=== PATIENT | male | born 1945 | race African-American/Black ===

== ENCOUNTER 2017-07-29 04:23 | Inpatient (IN) | payer MEDICARE ==
[2017-07-29] VITALS (7 sets, daily range): BP systolic 121–157; BP diastolic 56–78
[~2017-07-29] VITALS: Ht 175.3 cm; Wt 61.7 kg
[~2017-07-29 04:23] MED LIST: AMLO5TAB4 PO; ASPI-1158 PO; ATOR10TA PO; CALC0.253; CLOP75TA16; CLOP75TA33; LISI-604 PO; LOSA50TA20; METO25TA6 PO
[2017-07-29] MEDS ORDERED: ASPIRIN 81MG TABLET PO ONE (05:00)
[2017-07-29] MEDS ORDERED: SODIUM CHLORIDE 0.9% 1,000 ML IV ONE (05:00)
[2017-07-29 05:54] LABS: BASOPHILS % 0.4 % (0.0-2.0); EOSINOPHILS % 0.3 % (0.0-5.0); HEMOGLOBIN. 13.4 g/dL (14.0-18.0); LYMPHOCYTES % 9.5 % (20.0-50.0); MEAN CORPUSCULAR HEMOGLOBIN 29.7 pg (28.0-32.0); MEAN CORPUSCULAR VOLUME 88.9 fL (80.0-94.0); MEAN PLATELET VOLUME 9.6 fl (7.4-10.4); MONOCYTES % 4.3 % (2.0-8.0); NEUTROPHILS % 85.5 % (40.0-76.0); PLATELET 212 x1000/uL (130-400); RED CELL DISTRIBUTION WIDTH 12.9 % (11.6-14.6)
[2017-07-29 06:03] LABS: D-DIMER 0.62 mg/L FEU (<0.50); INR 1.1; PROTHROMBIN TIME 11.2 sec (9.4-11.6)
[2017-07-29 06:23] LABS: CARBON DIOXIDE 25 mEq/L (21-32); CHLORIDE 106 mEq/L (98-107); ETHANOL BLOOD < 10 mg/dL; TROPONIN I < 0.02 ng/mL (0.00-0.04)
[2017-07-29] MEDS ORDERED: ONDANSETRON HCL 4MG/2ML VIAL IV PRN (07:00)
[2017-07-29] MEDS ORDERED: MAGNESIUM/ALUMINUM HYDROXIDE/SIMETHICONE 30ML UDC PO PRN (07:00)
[2017-07-29] MEDS ORDERED: POTASSIUM CHLORIDE 20MEQ TABLET SR PO SCH ×2 (07:00→14:30)
[2017-07-29] MEDS ORDERED: TRAMADOL 50MG TABLET PO PRN (07:00)
[2017-07-29] MEDS ORDERED: DOCUSATE SODIUM 100MG CAPSULE PO PRN (07:00)
[2017-07-29] MEDS ORDERED: NA PHOS,M-B/NA PHOS,DI-BA ENEMA 118ML PR PRN (07:00)
[2017-07-29] MEDS ORDERED: LORAZEPAM 2MG/ML CPJ IV PRN (07:00)
[2017-07-29] MEDS ORDERED: NITROGLYCERIN 0.4MG TABLET SL SL PRN (07:00)
[2017-07-29] MEDS ORDERED: IPRATROPIUM/ALBUTEROL 0.5-3(2.5)MG/3ML NEB INH PRN (07:00)
[2017-07-29] MEDS ORDERED: ACETAMINOPHEN 325MG TABLET PO PRN (07:00)
[2017-07-29] MEDS ORDERED: GUAIFENESIN 200MG/10ML SUGAR FREE UDC PO PRN (07:00)
[2017-07-29] MEDS ORDERED: CLONIDINE 0.1MG TABLET PO PRN (07:00)
[2017-07-29] MEDS ORDERED: DIPHENHYDRAMINE 50MG/ML VIAL IV PRN (07:00)
[2017-07-29] MEDS ORDERED: MORPHINE SULFATE 4 MG/ML CPJ (NOT FOR IM USE) IV PRN (08:15)
[2017-07-29] MEDS: FAMOTIDINE 20MG/2ML VIAL IV SCH ×2 (08:38→21:13)
[2017-07-29] MEDS: ASPIRIN 325MG EC TABLET PO SCH (08:38)
[2017-07-29] MEDS: METOPROLOL TARTRATE 25MG TABLET PO SCH ×2 (08:39→21:13)
[2017-07-29] MEDS: ENOXAPARIN 40MG/0.4ML SYR SUBCUT SCH (08:39)
[2017-07-29] MEDS: LISINOPRIL 20MG TABLET PO SCH ×2 (08:39→21:13)
[2017-07-29] MEDS ORDERED: REGADENOSON 0.4 MG/5 ML IV ONE (14:30)
[2017-07-29 17:49] LABS: CREATINE KINASE MB FRACTION 7.1 ng/mL (0.5-3.6)
[2017-07-29 17:56] LABS: TROPONIN I 0.77 ng/mL (0.00-0.04)
[2017-07-29 19:11] LABS: *AMPHETAMINES SCREEN URINE NEGATIVE (NEGATIVE); *BARBITURATES SCREEN URINE NEGATIVE (NEGATIVE); *BENZODIAZEPINES SCREEN URINE NEGATIVE (NEGATIVE); *COCAINE SCREEN URINE NEGATIVE (NEGATIVE); CANNABINOID URINE SCREEN NEGATIVE (NEGATIVE); METHADONE URINE SCREEN NEGATIVE (NEGATIVE); OPIATES URINE SCREEN NEGATIVE (NEGATIVE); PHENCYCLIDINE URINE SCREEN NEGATIVE (NEGATIVE)
[2017-07-29] MEDS ORDERED: ZOLPIDEM TARTRATE 5MG TABLET PO PRN (21:00)
[2017-07-29] MEDS: ATORVASTATIN CALCIUM 10MG TABLET PO SCH (21:13)
[2017-07-30] VITALS (22 sets, daily range): BP systolic 100–169; BP diastolic 47–92
[2017-07-30 08:02] LABS: TROPONIN I 0.71 ng/mL (0.00-0.04)
[2017-07-30] MEDS: ENOXAPARIN 40MG/0.4ML SYR SUBCUT SCH (09:00)
[2017-07-30 09:31] LABS: CHLORIDE 108 mEq/L (98-107)
[2017-07-30 09:36] LABS: CARBON DIOXIDE 26 mEq/L (21-32)
[2017-07-30] MEDS ORDERED: CLONIDINE 0.2MG TABLET PO PRN (09:45)
[2017-07-30] MEDS ORDERED: CLONIDINE 0.1MG TABLET PO PRN (10:00)
[2017-07-30] MEDS: FAMOTIDINE 20MG/2ML VIAL IV SCH ×2 (10:34→21:51)
[2017-07-30] MEDS: LISINOPRIL 20MG TABLET PO SCH ×2 (10:35→21:50)
[2017-07-30] MEDS: METOPROLOL TARTRATE 25MG TABLET PO SCH ×2 (10:35→21:00)
[2017-07-30] MEDS: ASPIRIN 325MG EC TABLET PO SCH (10:35)
[2017-07-30] MEDS: NITROGLYCERIN OINT 1GM/INCH UDPKT TD SCH ×2 (12:44→17:06)
[2017-07-30] MEDS: AMLODIPINE 2.5MG TABLET PO SCH ×2 (12:44→21:50)
[2017-07-30] MEDS ORDERED: MIDAZOLAM HCL 2 MG/2 ML VIAL ONE (13:38)
[2017-07-30] MEDS ORDERED: HEPARIN SODIUM 1,000 UNIT/1ML VIAL IV ONE (13:38)
[2017-07-30] MEDS ORDERED: IODIXANOL 320MG/ML 100 ML BOTTLE IV ONE (13:39)
[2017-07-30] MEDS ORDERED: LIDOCAINE HCL 1% 20ML VIAL (Pyxis) INJ ONE (13:39)
[2017-07-30] MEDS ORDERED: FENTANYL CITRATE/PF 50MCG/ML 2ML VIAL ONE (13:39)
[2017-07-30] MEDS ORDERED: ATROPINE SULFATE 0.1MG/ML 10ML DISP.SYRIN ONE (13:54)
[2017-07-30] MEDS ORDERED: NITROGLYCERIN 50MCG/ML 10ML VIAL (CATH LAB) IV ONE (14:00)
[2017-07-30] MEDS ORDERED: NICARDIPINE 100MCG/ML 10ML VIAL (CATH LAB) IV ONE (14:00)
[2017-07-30] MEDS ORDERED: ATROPINE SULFATE 1MG/10ML SYR IV PRN (14:15)
[2017-07-30] MEDS ORDERED: SODIUM CHLORIDE 0.45% 1,000 ML IV ONE (14:15)
[2017-07-30] MEDS ORDERED: ACETAMINOPHEN 325MG TABLET PO PRN (14:15)
[2017-07-30] MEDS: ATORVASTATIN CALCIUM 10MG TABLET PO SCH (21:50)
[2017-07-31] VITALS (11 sets, daily range): BP systolic 102–147; BP diastolic 51–83
[2017-07-31] MEDS: NITROGLYCERIN OINT 1GM/INCH UDPKT TD SCH ×2 (00:25→06:11)
[2017-07-31 07:13] LABS: BASOPHILS % 0.5 % (0.0-2.0); EOSINOPHILS % 1.1 % (0.0-5.0); HEMATOCRIT. 36.7 % (42.0-52.0); HEMOGLOBIN. 12.2 g/dL (14.0-18.0); LYMPHOCYTES % 16.6 % (20.0-50.0); MEAN CORPUSCULAR HEMOGLOBIN 29.6 pg (28.0-32.0); MEAN CORPUSCULAR VOLUME 89.2 fL (80.0-94.0); MEAN PLATELET VOLUME 9.5 fl (7.4-10.4); MONOCYTES % 9.2 % (2.0-8.0); NEUTROPHILS % 72.6 % (40.0-76.0); PLATELET 193 x1000/uL (130-400); RED BLOOD CELL COUNT 4.11 mill/uL (4.7-6.1); RED CELL DISTRIBUTION WIDTH 12.4 % (11.6-14.6)
[2017-07-31 07:17] LABS: CHLORIDE 105 mEq/L (98-107)
[2017-07-31 07:37] LABS: CARBON DIOXIDE 25 mEq/L (21-32); TROPONIN I 0.31 ng/mL (0.00-0.04)
[2017-07-31] MEDS: METOPROLOL TARTRATE 25MG TABLET PO SCH (09:00)
[2017-07-31] MEDS: FAMOTIDINE 20MG/2ML VIAL IV SCH (09:01)
[2017-07-31] MEDS: ASPIRIN 325MG EC TABLET PO SCH (09:01)
[2017-07-31] MEDS: LISINOPRIL 20MG TABLET PO SCH (09:01)
[2017-07-31] MEDS: AMLODIPINE 2.5MG TABLET PO SCH (09:02)
[2017-07-31] MEDS ORDERED: CLOPIDOGREL 75MG TABLET PO SCH (09:30)
== END 2017-07-31 12:53 | disposition home or self-care (01) | DRG 282 ==
LOC: ER 04:23 → 5EST 05:14 → SUPCPDRO 06:32 → ENRESERV 12:01 → 3WST 07-30 14:25
PROVIDERS: ADMIT Internal Medicine; ATTEND Internal Medicine
PROC: 4A023N7 Measurement of Cardiac Sampling and Pressure, Left Heart, Percutaneous Approach (ICD-10-PCS; principal; 2017-07-30)
PROC: B2111ZZ Fluoroscopy of Multiple Coronary Arteries using Low Osmolar Contrast (ICD-10-PCS; 2017-07-30)
PROC: B2151ZZ Fluoroscopy of Left Heart using Low Osmolar Contrast (ICD-10-PCS; 2017-07-30)
DX: I21.4 Non-ST elevation (NSTEMI) myocardial infarction (principal); I27.2 Other secondary pulmonary hypertension; I11.9 Hypertensive heart disease without heart failure; E78.5 Hyperlipidemia, unspecified; E87.6 Hypokalemia; E78.00 Pure hypercholesterolemia, unspecified; I25.10 Atherosclerotic heart disease of native coronary artery without angina pectoris; J44.9 Chronic obstructive pulmonary disease, unspecified; Z79.82 Long term (current) use of aspirin; Z95.5 Presence of coronary angioplasty implant and graft
CPT/HCPCS: 36415; 71010; 80048; 80053; 80061; 80305; 82550; 82553; 83036; 83690; 83735; 83880; 84443; 84484; 85025; 85379; 85610; 93005; 93306; 93458; 93970; 96360; 96361; 99285; C1769; C1887; C1893; G0482; J0461; J1644; J1650; J2250; J3010; J3490; J7030; Q9967

== ENCOUNTER 2017-12-01 01:47 | Emergency (ER) | payer MEDICARE ==
[~2017-12-01] VITALS: Ht 182.9 cm; Wt 69.0 kg
[2017-12-01 03:27] LABS: BASOPHILS % 0.3 % (0.0-2.0); EOSINOPHILS % 0.4 % (0.0-5.0); HEMATOCRIT. 42.4 % (42.0-52.0); HEMOGLOBIN. 13.7 g/dL (14.0-18.0); LYMPHOCYTES % 11.7 % (20.0-50.0); MEAN CORPUSCULAR HEMOGLOBIN 29.1 pg (28.0-32.0); MEAN CORPUSCULAR VOLUME 90.5 fL (80.0-94.0); MEAN PLATELET VOLUME 9.1 fl (7.4-10.4); MONOCYTES % 7.6 % (2.0-8.0); PLATELET 222 x1000/uL (130-400); RED BLOOD CELL COUNT 4.69 mill/uL (4.7-6.1)
[2017-12-01 04:01] LABS: CARBON DIOXIDE 29 mEq/L (21-32); CHLORIDE 106 mEq/L (98-107); TROPONIN I < 0.02 ng/mL (0.00-0.04)
[2017-12-01 05:50] VITALS: BP 137/67
== END 2017-12-01 06:00 | disposition home or self-care (01) ==
LOC: ER 01:55
DX: R00.0 Tachycardia, unspecified (principal); I11.0 Hypertensive heart disease with heart failure; I50.9 Heart failure, unspecified; Z79.82 Long term (current) use of aspirin
CPT/HCPCS: 36415; 71045; 80053; 83880; 84484; 85025; 85379; 93005; 99285

== ENCOUNTER 2017-12-06 13:04 | Emergency (ER) | payer MEDICARE ==
[~2017-12-06] VITALS: Ht 170.2 cm; Wt 62.0 kg
[2017-12-06 13:15] VITALS: BP 178/83
== END 2017-12-06 13:41 | disposition home or self-care (01) ==
LOC: ER 13:28
DX: H93.12 Tinnitus, left ear (principal); I11.0 Hypertensive heart disease with heart failure; I50.9 Heart failure, unspecified; Z79.82 Long term (current) use of aspirin
CPT/HCPCS: 99281

== ENCOUNTER 2018-02-06 00:33 | Emergency (ER) | payer MEDICARE ==
[~2018-02-06] VITALS: Ht 177.8 cm; Wt 73.0 kg
[2018-02-06 02:36] LABS: BASOPHILS % 0.5 % (0.0-2.0); HEMATOCRIT. 40.7 % (42.0-52.0); HEMOGLOBIN. 13.3 g/dL (14.0-18.0); LYMPHOCYTES % 7.9 % (20.0-50.0); MEAN CORPUSCULAR HEMOGLOBIN 29.3 pg (28.0-32.0); MEAN CORPUSCULAR VOLUME 89.5 fL (80.0-94.0); MEAN PLATELET VOLUME 9.1 fl (7.4-10.4); MONOCYTES % 8.3 % (2.0-8.0); NEUTROPHILS % 82.3 % (40.0-76.0); PLATELET 214 x1000/uL (130-400); RED BLOOD CELL COUNT 4.55 mill/uL (4.7-6.1); RED CELL DISTRIBUTION WIDTH 12.9 % (11.6-14.6)
[2018-02-06 02:46] LABS: CHLORIDE 107 mEq/L (98-107)
[2018-02-06 04:11] VITALS: BP 138/77
== END 2018-02-06 05:42 | disposition home or self-care (01) ==
LOC: ER 00:42
DX: R00.2 Palpitations (principal); I11.0 Hypertensive heart disease with heart failure; I50.9 Heart failure, unspecified; Z79.82 Long term (current) use of aspirin; Z79.01 Long term (current) use of anticoagulants
CPT/HCPCS: 36415; 71045; 80053; 83880; 84484; 85025; 93005; 99285

== ENCOUNTER 2018-12-02 08:39 | Inpatient (IN) | payer MEDICARE ==
[~2018-12-02] VITALS: Ht 172.7 cm; Wt 64.9 kg
[2018-12-02 09:31] LABS: BASOPHILS % 0.4 % (0.0-2.0); EOSINOPHILS % 0.8 % (0.0-5.0); HEMATOCRIT. 43.5 % (42.0-52.0); HEMOGLOBIN. 14.2 g/dL (14.0-18.0); LYMPHOCYTES % 18.9 % (20.0-50.0); MEAN CORPUSCULAR VOLUME 91.8 fL (80.0-94.0); MEAN PLATELET VOLUME 8.8 fl (7.4-10.4); MONOCYTES % 8.8 % (2.0-8.0); NEUTROPHILS % 71.1 % (40.0-76.0); PLATELET 264 x1000/uL (130-400); RED BLOOD CELL COUNT 4.74 mill/uL (4.7-6.1); RED CELL DISTRIBUTION WIDTH 12.8 % (11.6-14.6)
[2018-12-02 09:34] LABS: CHLORIDE 110 mEq/L (98-107)
[2018-12-02 09:38] LABS: PROTHROMBIN TIME 10.4 sec (9.1-11.1)
[2018-12-02] MEDS ORDERED: POTASSIUM CHLORIDE 20MEQ TABLET SR PO ONE (10:30)
[2018-12-02] MEDS ORDERED: ASPIRIN 81MG TABLET PO ONE (10:30)
[2018-12-02] MEDS ORDERED: FAMO20TA8 MT (11:40)
[2018-12-02] MEDS ORDERED: HYDR100T26 MT (11:42)
[2018-12-02] MEDS ORDERED: LOSA100T14 MT (11:45)
[2018-12-02] MEDS ORDERED: ATOR40TA70 MT (11:47)
[2018-12-02] MEDS ORDERED: CLONIDINE 0.1MG TABLET PO PRN (12:45)
[2018-12-02] MEDS ORDERED: GUAIFENESIN 200MG/10ML SUGAR FREE UDC PO PRN (12:45)
[2018-12-02] MEDS ORDERED: IPRATROPIUM/ALBUTEROL 0.5-3(2.5)MG/3ML NEB INH PRN (12:45)
[2018-12-02] MEDS ORDERED: MAGNESIUM/ALUMINUM HYDROXIDE/SIMETHICONE 30ML UDC PO PRN (12:45)
[2018-12-02] MEDS ORDERED: NITROGLYCERIN 0.4MG TABLET SL SL PRN (12:45)
[2018-12-02] MEDS ORDERED: ACETAMINOPHEN 325MG TABLET PO PRN (12:45)
[2018-12-02] MEDS ORDERED: ONDANSETRON HCL 4MG/2ML INJ IV PRN (12:45)
[2018-12-02] MEDS ORDERED: DIPHENHYDRAMINE 50MG/ML VIAL IV PRN (12:45)
[2018-12-02] MEDS ORDERED: DOCUSATE SODIUM 100MG CAPSULE PO PRN (12:45)
[2018-12-02 15:19] LABS: *AMPHETAMINES SCREEN URINE NEGATIVE (NEGATIVE); *BARBITURATES SCREEN URINE NEGATIVE (NEGATIVE); *BENZODIAZEPINES SCREEN URINE NEGATIVE (NEGATIVE); *COCAINE SCREEN URINE NEGATIVE (NEGATIVE)
[2018-12-02 15:20] LABS: METHADONE URINE SCREEN NEGATIVE (NEGATIVE); OPIATES URINE SCREEN NEGATIVE (NEGATIVE)
[2018-12-02 15:21] LABS: CANNABINOID URINE SCREEN NEGATIVE (NEGATIVE); PHENCYCLIDINE URINE SCREEN NEGATIVE (NEGATIVE)
[2018-12-02 20:00] VITALS: BP 143/73
[2018-12-02] MEDS ORDERED: TRAMADOL 50MG TABLET PO PRN (20:40)
[2018-12-02] MEDS ORDERED: ZOLPIDEM TARTRATE 5MG TABLET PO PRN (20:44)
[2018-12-02] MEDS ORDERED: LORAZEPAM 0.5MG TABLET PO PRN (20:44)
[2018-12-02] MEDS ORDERED: ATORVASTATIN CALCIUM 10MG TABLET PO SCH (21:00)
[2018-12-02] MEDS ORDERED: NA PHOS,M-B/NA PHOS,DI-BA ENEMA 118ML PR PRN (21:00)
[2018-12-02] MEDS ORDERED: LISINOPRIL 20MG TABLET PO SCH (21:00)
[2018-12-02] MEDS ORDERED: ENOXAPARIN 40MG/0.4ML SYR SUBCUT SCH (21:00)
[2018-12-02 21:02] LABS: CREATINE KINASE MB FRACTION 6.1 ng/mL (0.5-3.6)
[2018-12-02 22:00] VITALS: BP 143/73
[2018-12-02] MEDS: LOSARTAN POTASSIUM 25 MG TABLET PO SCH (22:01)
[2018-12-02] MEDS: ASPIRIN 81MG EC TABLET PO SCH (22:01)
[2018-12-02] MEDS: METOPROLOL TARTRATE 25MG TABLET PO SCH (22:02)
[2018-12-02] MEDS: ASCORBIC ACID 500 MG TABLET PO SCH (22:02)
[2018-12-02] MEDS: FAMOTIDINE 20MG TABLET PO SCH (22:03)
[2018-12-03] VITALS: BP 132/80
[2018-12-03 04:00] VITALS: BP 139/70
[2018-12-03 08:00] VITALS: BP 110/71
[2018-12-03] MEDS: LOSARTAN POTASSIUM 25 MG TABLET PO SCH (08:49)
[2018-12-03] MEDS: METOPROLOL TARTRATE 25MG TABLET PO SCH (08:50)
[2018-12-03] MEDS: ASPIRIN 81MG EC TABLET PO SCH ×2 (08:50→17:00)
[2018-12-03] MEDS: ASCORBIC ACID 500 MG TABLET PO SCH (08:50)
[2018-12-03] MEDS: FAMOTIDINE 20MG TABLET PO SCH (08:51)
[2018-12-03] MEDS ORDERED: ZINC SULFATE 220 MG ( 50 ) CAPSULE PO SCH (09:00)
[2018-12-03] MEDS ORDERED: ASPIRIN 325MG EC TABLET PO SCH (09:00)
[2018-12-03] MEDS ORDERED: CLOPIDOGREL 75MG TABLET PO SCH (09:00)
[2018-12-03 12:00] VITALS: BP 138/78
[2018-12-03 15:44] VITALS: BP 138/78
[2018-12-03 16:00] VITALS: BP 128/75
== END 2018-12-03 18:05 | disposition home health service (06) | DRG 313 ==
LOC: ER 08:39 → EDBEDREQ 11:05 → EDBEDREQTM 11:05 → EDBEDREQ 11:59 → 5WST 12:00 → EDBEDREQTM 12:02 → ENRESERV 18:02
PROVIDERS: ADMIT Internal Medicine; ATTEND Internal Medicine
DX: R07.89 Other chest pain (principal); E78.00 Pure hypercholesterolemia, unspecified; E78.5 Hyperlipidemia, unspecified; E87.6 Hypokalemia; R00.0 Tachycardia, unspecified; R00.2 Palpitations; I11.9 Hypertensive heart disease without heart failure; I25.10 Atherosclerotic heart disease of native coronary artery without angina pectoris; J44.9 Chronic obstructive pulmonary disease, unspecified; Z79.899 Other long term (current) drug therapy; Z95.5 Presence of coronary angioplasty implant and graft; Z79.82 Long term (current) use of aspirin
CPT/HCPCS: 36415; 71045; 80061; 80305; 82550; 82553; 83036; 83735; 83880; 84443; 84484; 85379; 93005; 93306; 93970; 96374; 97162; 97165; 99285; J1650

== ENCOUNTER 2019-04-10 19:34 | Emergency (ER) | payer MEDICARE ==
[~2019-04-10] VITALS: Ht 180.3 cm; Wt 65.0 kg
[~2019-04-10 19:34] MED LIST changes: -ATOR10TA PO; +ATOR40TA70 MT; -CLOP75TA16; +CLOP75TA4; +FAMO20TA8 MT; +HYDR100T26 MT; +LOSA100T32 MT; -LOSA50TA20
[2019-04-10 20:08] VITALS: BP 175/78
== END 2019-04-10 21:09 | disposition left against medical advice (07) ==
LOC: ER 19:34
DX: H57.89 Other specified disorders of eye and adnexa (principal); Z53.21 Procedure and treatment not carried out due to patient leaving prior to being seen by health care provider

== ENCOUNTER 2019-10-01 17:22 | Emergency (ER) | payer MEDICARE ==
[~2019-10-01] VITALS: Ht 175.3 cm; Wt 73.0 kg
[2019-10-01 18:32] LABS: BASOPHILS % 0.3 % (0.0-2.0); EOSINOPHILS % 0.6 % (0.0-5.0); HEMOGLOBIN. 14.4 g/dL (14.0-18.0); LYMPHOCYTES % 12.2 % (20.0-50.0); MEAN CORPUSCULAR HEMOGLOBIN 30.8 pg (28.0-32.0); MEAN CORPUSCULAR VOLUME 91.7 fL (80.0-94.0); MEAN PLATELET VOLUME 9.5 fl (7.4-10.4); NEUTROPHILS % 77.9 % (40.0-76.0); PLATELET 198 x1000/uL (130-400); RED BLOOD CELL COUNT 4.69 mill/uL (4.7-6.1); RED CELL DISTRIBUTION WIDTH 12.7 % (11.6-14.6)
[2019-10-01 18:33] LABS: CHLORIDE 103 mEq/L (98-107)
[2019-10-01 19:33] VITALS: BP 117/52
== END 2019-10-01 20:24 | disposition home or self-care (01) ==
LOC: ER 17:22
DX: R00.2 Palpitations (principal); I10 Essential (primary) hypertension; Z79.82 Long term (current) use of aspirin; Z79.899 Other long term (current) drug therapy
CPT/HCPCS: 36415; 71045; 83880; 84484; 93005; 99284

== ENCOUNTER 2020-07-11 20:34 | Emergency (ER) | payer MEDICARE ==
[~2020-07-11] VITALS: Ht 172.7 cm; Wt 68.0 kg
[2020-07-11] MEDS ORDERED: IBUPROFEN 600MG TABLET PO ONE (21:30)
[2020-07-11 22:02] LABS: BASOPHILS % 0.4 % (0.0-2.0); EOSINOPHILS % 0.8 % (0.0-5.0); HEMATOCRIT. 43.6 % (42.0-52.0); HEMOGLOBIN. 14.3 g/dL (14.0-18.0); LYMPHOCYTES % 10.2 % (20.0-50.0); MEAN CORPUSCULAR HEMOGLOBIN 30.2 pg (28.0-32.0); MEAN CORPUSCULAR VOLUME 91.9 fL (80.0-94.0); MEAN PLATELET VOLUME 9.5 fl (7.4-10.4); MONOCYTES % 7.9 % (2.0-8.0); NEUTROPHILS % 80.7 % (40.0-76.0); PLATELET 225 x1000/uL (130-400); RED BLOOD CELL COUNT 4.75 mill/uL (4.7-6.1); RED CELL DISTRIBUTION WIDTH 12.9 % (11.6-14.6)
[2020-07-11 22:08] LABS: CHLORIDE 108 mEq/L (98-107)
[2020-07-11] MEDS ORDERED: MAGNESIUM CITRATE 300ML SOLUTION PO ONE (23:00)
[2020-07-11 23:40] VITALS: BP 154/73
== END 2020-07-12 00:34 | disposition home or self-care (01) ==
LOC: ER 20:34
DX: R10.31 Right lower quadrant pain (principal); K59.00 Constipation, unspecified; I10 Essential (primary) hypertension; Z79.82 Long term (current) use of aspirin
CPT/HCPCS: 36415; 74021; 80053; 85025; 93005; 99285

== ENCOUNTER 2021-09-17 11:51 | Inpatient (IN) | payer MEDICARE ==
[~2021-09-17] VITALS: Ht 177.8 cm; Wt 62.6 kg
[~2021-09-17 11:51] MED LIST changes: -ASPI-1158 PO; +ASPI-1406 PO; +CLOP-31; -CLOP75TA4; -LISI-604 PO; +LISI20TA31 PO; +NICARDIPINE 100MCG/ML 10ML VIAL (CATH LAB) IV ONE; +NITROGLYCERIN 50MCG/ML 10ML VIAL (CATH LAB) IV ONE
[2021-09-17] MEDS ORDERED: ASPIRIN/SOD BICARB/CITRIC ACID 324MG TAB EFF PO NR (12:15)
[2021-09-17] MEDS ORDERED: HEPARIN 5000 UNITS/ML VIAL IV ONE (12:15)
[2021-09-17 12:27] LABS: BASOPHILS % 0.2 % (0.0-2.0); EOSINOPHILS % 0.5 % (0.0-5.0); HEMATOCRIT. 49.2 % (42.0-52.0); HEMOGLOBIN. 16.1 g/dL (14.0-18.0); LYMPHOCYTES % 11.5 % (20.0-50.0); MEAN CORPUSCULAR HEMOGLOBIN 30.4 pg (28.0-32.0); MEAN PLATELET VOLUME 9.1 fl (7.4-10.4); MONOCYTES % 6.4 % (2.0-8.0); NEUTROPHILS % 81.4 % (40.0-76.0); PLATELET 250 x1000/uL (130-400); RED BLOOD CELL COUNT 5.29 mill/uL (4.7-6.1); RED CELL DISTRIBUTION WIDTH 12.8 % (11.6-14.6)
[2021-09-17] MEDS ORDERED: SODIUM CHLORIDE 0.45% 1,000 ML IV ONE ×2 (12:30→14:30)
[2021-09-17 12:32] LABS: CHLORIDE 105 mEq/L (98-107)
[2021-09-17] MEDS ORDERED: INSULIN REGULAR (HUMULIN R) 300UNITS/3ML VIAL IV ONE (13:15)
[2021-09-17] MEDS ORDERED: DEXTROSE 50% WATER 50ML SYRINGE IV ONE (13:15)
[2021-09-17] MEDS ORDERED: FENTANYL CITRATE/PF 50MCG/ML 2ML VIAL ONE (13:23)
[2021-09-17] MEDS ORDERED: MIDAZOLAM HCL 2 MG/2 ML VIAL ONE (13:23)
[2021-09-17] MEDS ORDERED: ASPIRIN/SOD BICARB/CITRIC ACID 324MG TAB EFF ONE (13:23)
[2021-09-17] MEDS ORDERED: LIDOCAINE HCL 1% 10 MG/ML 10ML VIAL ONE (13:24)
[2021-09-17] MEDS ORDERED: IODIXANOL 320MG/ML 100 ML BOTTLE IV ONE (13:24)
[2021-09-17] MEDS ORDERED: ATROPINE SULFATE 1MG/10ML SYR IV PRN (14:15)
[2021-09-17] MEDS ORDERED: ACETAMINOPHEN 325MG TABLET PO PRN ×2 (14:15→21:00)
[2021-09-17] MEDS ORDERED: ONDANSETRON HCL 4MG/2ML INJ IV PRN ×2 (14:15→21:00)
[2021-09-17] MEDS ORDERED: MORPHINE SULFATE 2 MG/ML CPJ (NOT FOR IM USE) IV PRN (14:15)
[2021-09-17] MEDS ORDERED: NALOXONE HCL 0.4MG/ML VIAL IV PRN (14:30)
[2021-09-17 17:25] VITALS: BP 131/74
[2021-09-17] MEDS ORDERED: PNEUMOCOCCAL 23-VAL P-SAC VAC 0.5 ML IM ONE (17:45)
[2021-09-17] MEDS ORDERED: INFLUENZA VACCINE 05/PF 0.5 ML SYRINGE IM ONE (17:45)
[2021-09-17 18:00] VITALS: BP 128/71
[2021-09-17] MEDS: LOSARTAN POTASSIUM 50 MG TABLET PO SCH (18:25)
[2021-09-17 19:18] LABS: PARTIAL THROMBOPLASTIN TIME 28.5 sec (23.4-31.0)
[2021-09-17 20:04] VITALS: BP 122/64
[2021-09-17] MEDS: METOPROLOL TARTRATE 25MG TABLET PO SCH (20:13)
[2021-09-17] MEDS: AMLODIPINE 2.5MG TABLET PO SCH (20:22)
[2021-09-17] MEDS: ATORVASTATIN CALCIUM 20MG TABLET PO SCH (20:22)
[2021-09-17] MEDS ORDERED: TRAMADOL 50MG TABLET PO PRN (21:00)
[2021-09-17] MEDS ORDERED: GUAIFENESIN 200MG/10ML SUGAR FREE UDC PO PRN (21:00)
[2021-09-17] MEDS ORDERED: DOCUSATE SODIUM 100MG CAPSULE PO PRN (21:00)
[2021-09-17] MEDS ORDERED: NITROGLYCERIN 0.4MG TABLET SL SL PRN (21:00)
[2021-09-17] MEDS ORDERED: ZOLPIDEM TARTRATE 5MG TABLET PO PRN (21:00)
[2021-09-17] MEDS ORDERED: CLONIDINE 0.1MG TABLET PO PRN (21:00)
[2021-09-17] MEDS ORDERED: IPRATROPIUM/ALBUTEROL 0.5-3(2.5)MG/3ML NEB NEB PRN (21:00)
[2021-09-17] MEDS ORDERED: MAGNESIUM/ALUMINUM HYDROXIDE/SIMETHICONE 30ML UDC PO PRN (21:00)
[2021-09-17] MEDS: FAMOTIDINE 20MG TABLET PO SCH (21:45)
[2021-09-17] MEDS: ENOXAPARIN 40MG/0.4ML SYR SUBCUT SCH (21:45)
[2021-09-17 22:00] VITALS: BP 122/60
[2021-09-18] VITALS (12 sets, daily range): BP systolic 108–148; BP diastolic 45–81
[2021-09-18 01:26] LABS: CREATINE KINASE MB FRACTION 2.5 ng/mL (0.5-3.6)
[2021-09-18 06:36] LABS: BASOPHILS % 0.3 % (0.0-2.0); EOSINOPHILS % 1.1 % (0.0-5.0); HEMATOCRIT. 39.2 % (42.0-52.0); HEMOGLOBIN. 12.8 g/dL (14.0-18.0); MEAN CORPUSCULAR HEMOGLOBIN 30.3 pg (28.0-32.0); MEAN CORPUSCULAR VOLUME 92.3 fL (80.0-94.0); MONOCYTES % 8.6 % (2.0-8.0); PLATELET 202 x1000/uL (130-400); RED BLOOD CELL COUNT 4.25 mill/uL (4.7-6.1); RED CELL DISTRIBUTION WIDTH 12.7 % (11.6-14.6)
[2021-09-18 08:30] LABS: CHLORIDE 107 mEq/L (98-107)
[2021-09-18 08:47] LABS: LDL CHOLESTEROL 49 mg/dL (5-100)
[2021-09-18 08:48] LABS: CREATINE KINASE 109 IU/L (39-308)
[2021-09-18 08:49] LABS: HDL CHOLESTEROL 72 mg/dL (40-59)
[2021-09-18 08:51] LABS: CREATINE KINASE MB FRACTION 2.1 ng/mL (0.5-3.6)
[2021-09-18] MEDS: METOPROLOL TARTRATE 25MG TABLET PO SCH (09:00)
[2021-09-18] MEDS ORDERED: CLOPIDOGREL 75MG TABLET PO SCH (09:00)
[2021-09-18] MEDS ORDERED: ASPIRIN 81MG TABLET PO SCH (09:00)
[2021-09-18] MEDS: FAMOTIDINE 20MG TABLET PO SCH ×2 (09:14→20:09)
[2021-09-18] MEDS: AMLODIPINE 2.5MG TABLET PO SCH ×2 (09:15→20:09)
[2021-09-18] MEDS: LOSARTAN POTASSIUM 50 MG TABLET PO SCH ×2 (09:15→18:01)
[2021-09-18 10:20] LABS: HEMATOCRIT 40.2 % (42.0-52.0); HEMOGLOBIN 13.2 g/dL (14.0-18.0)
[2021-09-18 10:35] LABS: TOTAL IRON BINDING CAPACITY 230 ug/dL (250-450)
[2021-09-18] MEDS: ENOXAPARIN 40MG/0.4ML SYR SUBCUT SCH (20:09)
[2021-09-18] MEDS: ATORVASTATIN CALCIUM 20MG TABLET PO SCH (20:09)
== END 2021-09-18 23:55 | disposition home health service (06) | DRG 280 ==
LOC: ER 11:51 → EDBEDREQ 14:03 → MICUSO 14:04 → 3WST 17:24
PROVIDERS: ADMIT Internal Medicine; ATTEND Internal Medicine
PROC: B211YZZ Fluoroscopy of Multiple Coronary Arteries using Other Contrast (ICD-10-PCS; principal; 2021-09-17)
PROC: 4A023N7 Measurement of Cardiac Sampling and Pressure, Left Heart, Percutaneous Approach (ICD-10-PCS; 2021-09-17)
PROC: B215YZZ Fluoroscopy of Left Heart using Other Contrast (ICD-10-PCS; 2021-09-17)
DX: I21.4 Non-ST elevation (NSTEMI) myocardial infarction (principal); I46.2 Cardiac arrest due to underlying cardiac condition; I49.01 Ventricular fibrillation; I47.2 Ventricular tachycardia; R57.9 Shock, unspecified; I10 Essential (primary) hypertension; I25.110 Atherosclerotic heart disease of native coronary artery with unstable angina pectoris; E78.5 Hyperlipidemia, unspecified; E88.09 Other disorders of plasma-protein metabolism, not elsewhere classified; R73.9 Hyperglycemia, unspecified; E87.5 Hyperkalemia; E78.00 Pure hypercholesterolemia, unspecified; Z20.822 Contact with and (suspected) exposure to COVID-19; I27.20 Pulmonary hypertension, unspecified; F03.90 Unspecified dementia, unspecified severity, without behavioral disturbance, psychotic disturbance, mood disturbance, and anxiety; Z79.02 Long term (current) use of antithrombotics/antiplatelets; Z79.899 Other long term (current) drug therapy; Z87.891 Personal history of nicotine dependence; I25.2 Old myocardial infarction; Z79.82 Long term (current) use of aspirin; Z95.5 Presence of coronary angioplasty implant and graft
CPT/HCPCS: 36415; 71045; 80048; 80053; 80061; 82550; 82553; 83036; 83540; 83550; 83735; 83880; 84100; 84132; 84484; 85014; 85018; 85025; 85044; 85347; 87426; 90686; 90732; 93005; 93458; 93970; 99291; C1769; C1887; C1893; J1644; J1650; J2250; J3010; J3490; Q9967

== ENCOUNTER 2023-12-29 13:49 | Emergency (ER) | payer MEDICARE, MEDICAID ==
[~2023-12-29] VITALS: Ht 177.8 cm; Wt 74.0 kg
[~2023-12-29 13:49] MED LIST changes: -LOSA100T32 MT; +LOSA100T33 MT; -NICARDIPINE 100MCG/ML 10ML VIAL (CATH LAB) IV ONE; -NITROGLYCERIN 50MCG/ML 10ML VIAL (CATH LAB) IV ONE
[2023-12-29 13:51] VITALS: O2SAT 99
[2023-12-29 14:54] LABS: BASOPHILS % 0.6 % (0.0-2.0); EOSINOPHILS % 1.4 % (0.0-5.0); HEMATOCRIT. 39.8 % (42.0-52.0); HEMOGLOBIN. 13.2 g/dL (14.0-18.0); LYMPHOCYTES % 8.8 % (20.0-50.0); MEAN CORPUSCULAR HEMOGLOBIN 30.6 pg (28.0-32.0); MEAN CORPUSCULAR HGB CONC 33.1 g/dL (31.0-37.0); MEAN CORPUSCULAR VOLUME 92.7 fL (80.0-94.0); MEAN PLATELET VOLUME 7.8 fl (7.4-10.4); MONOCYTES % 7.5 % (2.0-8.0); NEUTROPHILS % 81.7 % (40.0-76.0); PLATELET 259 x1000/uL (130-400); RED CELL DISTRIBUTION WIDTH 12.7 % (11.6-14.6); WHITE BLOOD COUNT 6.1 x1000/uL (4.5-11.0)
[2023-12-29 15:06] LABS: PROTHROMBIN TIME 10.8 sec (9.6-11.0)
[2023-12-29 15:09] LABS: ALANINE AMINOTRANSFERASE 13 IU/L (10-49); ASPARTATE AMINOTRANSFERASE 17 IU/L (<34); BILIRUBIN TOTAL 1.8 mg/dL (0.1-1.0); CALCIUM 9.2 mg/dL (8.7-10.4); CARBON DIOXIDE 29 mEq/L (21-32); CHLORIDE 106 mEq/L (98-107); CREATININE 0.9 mg/dL (0.6-1.3); GLUCOSE 123 mg/dL (70-105); POTASSIUM 4.2 mEq/L (3.5-5.1); PROTEIN TOTAL 6.5 g/dL (6.0-8.3); SODIUM 140 mEq/L (136-145); TROPONIN I HIGH SENSITIVITY 6 ng/L (3.0-53); UREA NITROGEN BLOOD 10 mg/dL (9-23)
[2023-12-29] MEDS: LORAZEPAM 2MG/ML INJ IV ONE (18:15)
[2023-12-29 19:49] VITALS: BP 165/80; PULSE 58; RESP 16; TEMP 98.5
== END 2023-12-29 19:52 | disposition home or self-care (01) ==
LOC: ER 13:49 → EDBEDREQ 16:57 → ER 19:52
DX: R53.1 Weakness (principal); F03.B0 Unspecified dementia, moderate, without behavioral disturbance, psychotic disturbance, mood disturbance, and anxiety; I11.9 Hypertensive heart disease without heart failure; I25.2 Old myocardial infarction
CPT/HCPCS: 36415; 71045; 80053; 83880; 84484; 85025; 99284